=== PATIENT | male | born 1995 | race Caucasian/White ===

== ENCOUNTER 2021-12-21 10:28 | Emergency (ER) | payer OTHER ==
[~2021-12-21] VITALS: Ht 167.6 cm; Wt 90.7 kg
[2021-12-21] MEDS ORDERED: MIRTAZAPINE45 MG PO (11:28)
[2021-12-21] MEDS ORDERED: LAMOTRIGINE150 MG PO (11:28)
[2021-12-21] MEDS ORDERED: MELATONIN1 MG PO (11:29)
[2021-12-21] MEDS ORDERED: MINIPRESS2 MG PO (11:29)
[2021-12-21] MEDS ORDERED: THERA-GEL251 ML TOP (11:30)
[2021-12-21] MEDS ORDERED: LIDOCAINE HCL100 ML MT (11:31)
[2021-12-21] MEDS ORDERED: GENTLE LAXATIVE5 M1 PO (11:32)
[2021-12-21] MEDS ORDERED: SULFAMETHOXAZO1 EAC1 PO (11:33)
[2021-12-21] MEDS ORDERED: CIPRO500 MG PO (12:18)
== END 2021-12-21 12:36 | disposition home or self-care (01) ==
LOC: ED 10:28
DX: S61.451A Open bite of right hand, initial encounter (principal); W53.81XA Bitten by other rodent, initial encounter; Z88.0 Allergy status to penicillin; Z79.899 Other long term (current) drug therapy
CPT/HCPCS: 99283

== ENCOUNTER 2022-02-15 09:54 | Emergency (ER) | payer OTHER ==
[~2022-02-15] VITALS: Ht 167.6 cm; Wt 89.4 kg
[~2022-02-15 09:54] MED LIST: CIPRO500 MG PO; GENTLE LAXATIVE5 M1 PO; LAMOTRIGINE150 MG PO; LIDOCAINE HCL100 ML MT; MELATONIN1 MG PO; MINIPRESS2 MG PO; MIRTAZAPINE45 MG PO; SULFAMETHOXAZO1 EAC1 PO; THERA-GEL251 ML TOP
[2022-02-15] MEDS ORDERED: CLEOCIN HCL300 MG PO ×2 (10:14→14:24)
== END 2022-02-15 14:43 | disposition home or self-care (01) ==
LOC: ED 09:54
DX: L03.211 Cellulitis of face (principal); Z88.0 Allergy status to penicillin; Z79.899 Other long term (current) drug therapy
CPT/HCPCS: 10160; 36415; 70487; 80048; 85025; 99284-25; Q9967

== ENCOUNTER 2022-02-17 17:22 | Emergency (ER) | payer OTHER ==
[~2022-02-17] VITALS: Ht 167.6 cm; Wt 89.4 kg
[~2022-02-17 17:22] MED LIST changes: +CLEOCIN HCL300 MG PO
--- OUTSIDE RECORDS SUMMARY | 2022-02-17 17:30 | XMS ---
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 [place] - 2 Visits in 30 Days CARE PROVIDERS There are no care providers on record at this time. Yamileth has no Care Guidelines for this patient. [facility] (12 [address] [facility] NOTE: Visits indicate total known visits. 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
[2022-02-17] MEDS ORDERED: BACTRIM DS TAB1 EACH PO (20:33)
== END 2022-02-17 20:55 | disposition home or self-care (01) ==
LOC: ED 17:22
DX: L03.211 Cellulitis of face (principal); J32.9 Chronic sinusitis, unspecified; Z88.0 Allergy status to penicillin
CPT/HCPCS: 99283; A9270

== ENCOUNTER 2024-05-01 21:22 | Emergency (ER) | payer OTHER ==
[~2024-05-01] VITALS: Ht 167.6 cm; Wt 90.0 kg
[~2024-05-01 21:22] MED LIST changes: +BACTRIM DS TAB1 EACH PO
[2024-05-01 21:40] LABS: BASOPHILS 0.5 % (0-2); EOSINOPHILS 1.2 % (0-6); HEMATOCRIT 47.1 % (35.0-50.0); HEMOGLOBIN 16.3 g/dL (12.0-18.0); LYMPHOCYTES 26.2 % (24-44); MCH 30.1 (27-36); MCHC 34.7 g/dl (30-36); MCV 86.9 fl (81-99); MONOCYTES 7.2 % (0-12); NEUTROPHILS 64.9 % (39-80); PLATELET COUNT 291 K/uL (140-440); RBC 5.42 M/ul (4.3-5.7); RDW 12.5 (10.5-15.0)
[2024-05-01] MEDS ORDERED: LIDOCAINE 2% VISCOUS 6 ML SYR TOP ONE (21:45)
[2024-05-01] MEDS ORDERED: PAXIL30 MG PO (21:57)
[2024-05-01 21:58] LABS: ALBUMIN 4.5 g/dL (3.4-5.0); ALBUMIN/GLOBULIN RATIO 1.41 (1.1-2.4); ANION GAP 17.5 (7-21); BILIRUBIN, TOTAL 0.5 ng/dL (0.2-1.0); BUN/CREATININE RATIO 10.79 (6.0-28.6); CALCIUM 9.6 mg/dL (8.5-10.1); CREATININE, SERUM 1.39 mg/dL (0.70-1.30); POTASSIUM 4.5 mmol/L (3.5-5.1); PROTEIN, TOTAL 7.7 g/dL (6.4-8.2)
[2024-05-01] MEDS ORDERED: VISTARIL25 MG PO (22:03)
[2024-05-01 22:04] LABS: BILIRUBIN, URINE NEGATIVE (negative); BLOOD/HGB, URINE NEGATIVE (Negative); KETONE, URINE NEGATIVE (Negative); LEUK ESTERASE, URINE NEGATIVE (negative); NITRITE, URINE NEGATIVE (negative)
[2024-05-01] MEDS ORDERED: AMITRIPTYLINE150 MG PO (22:04)
[2024-05-01] MEDS ORDERED: LAMOTRIGINE200 MG PO (22:07)
[2024-05-01] MEDS ORDERED: CEFTRIAXONE/SODIUM CHLORIDE 2 GM/100 ML PIGGYBACK IV ONE ×2 (22:15→22:45)
[2024-05-01] MEDS ORDERED: LORazepam 2 MG/ML VIAL IV ONE (22:15)
[2024-05-01 22:19] LABS: AMPHETAMINES, URINE NEGATIVE (NEGATIVE); BARBITURATES, URINE NEGATIVE (NEGATIVE); BENZODIAZEPINE, URINE NEGATIVE (NEGATIVE); BUPRENORPHINE, URINE NEGATIVE (NEGATIVE); CANNABINOID, URINE NEGATIVE (NEGATIVE); COCAINE, URINE NEGATIVE (NEGATIVE); ECSTASY, URINE NEGATIVE (NEGATIVE); FENTANYL, URINE NEGATIVE (NEGATIVE); METHADONE, URINE NEGATIVE (NEGATIVE); OPIATES, URINE NEGATIVE (NEGATIVE); OXYCODONE, URINE NEGATIVE (NEGATIVE); PHENCYCLIDINE, URINE NEGATIVE (NEGATIVE)
[2024-05-01] MEDS ORDERED: DIPHTH,PERTUSS(ACELL),TET VAC 0.5 ML SYRINGE IM ONE (22:30)
[2024-05-01] MEDS ORDERED: LACTATED RINGER'S 1,000 ML IV PRN (22:45)
[2024-05-02] MEDS ORDERED: METAXALONE 800 MG TAB PO ONE (01:45)
[2024-05-02] MEDS ORDERED: ACETAMINOPHEN 500 MG TAB PO ONE (01:45)
[2024-05-02] MEDS ORDERED: diphenhydrAMINE HCL 50 MG/ML VIAL IV ONE (01:45)
[2024-05-02] MEDS ORDERED: LACTATED RINGER'S 1,000 ML IV ONE (01:45)
[2024-05-02] MEDS ORDERED: CYCLOBENZAPRINE HCL 10 MG TAB PO ONE (03:30)
[2024-05-02 03:52] LABS: LACTIC ACID, BLOOD 1.3 mmol/L (0.4-2.0)
[2024-05-02] MEDS ORDERED: KETOROLAC TROMETHAMINE 30 MG/ML VIAL IV ONE (04:15)
[2024-05-02 04:50] VITALS: BP 149/95
[2024-05-02] MEDS ORDERED: FLOMAX0.4 MG PO (18:03)
--- NOTE | 2024-05-03 20:49 | EKG ---
[facility] [address] [place], [place] [address] Signed Sinus tachycardia Otherwise normal ECG No previous ECGs available Confirmed by Merna Story MD ([id number]) on 05/03/2024 8:49:28 PM Electronically Signed By: MERNA STORY DO 05/03/242048 PATIENT NAME: JEVON GARLAND Electrocardiogram DATE OF : [birth year] PHYSICIAN: MERNA STORY DO REPORT #: [id number] REPORT IS CONFIDENTIAL AND NOT TO BE RELEASED WITHOUT AUTHORIZATION
== END 2024-05-02 04:50 | disposition home or self-care (01) ==
LOC: ED 21:22
PROVIDERS: Internal Medicine
DX: E86.0 Dehydration (principal); R65.10 Systemic inflammatory response syndrome (SIRS) of non-infectious origin without acute organ dysfunction; G25.2 Other specified forms of tremor; Z88.0 Allergy status to penicillin; Z79.899 Other long term (current) drug therapy
CPT/HCPCS: 36415; 51701; 70450; 71045; 80053; 80307; 81003; 82553; 83605; 83735; 85025; 87040; 93005; 93010; 99285-25; A9270; G0480; J0696; J1200; J1885; J2060; J7121

== ENCOUNTER 2024-05-02 12:22 | Emergency (ER) | payer OTHER ==
[~2024-05-02] VITALS: Ht 167.6 cm; Wt 95.3 kg
[~2024-05-02 12:22] MED LIST changes: +AMITRIPTYLINE150 MG PO; +LAMOTRIGINE200 MG PO; +PAXIL30 MG PO; +VISTARIL25 MG PO
[2024-05-02 13:16] LABS: BASOPHILS 0.5 % (0-2); EOSINOPHILS 2.4 % (0-6); HEMATOCRIT 41.4 % (35.0-50.0); HEMOGLOBIN 14.5 g/dL (12.0-18.0); LYMPHOCYTES 23.8 % (24-44); MCH 30.4 (27-36); MCHC 34.9 g/dl (30-36); MONOCYTES 7.4 % (0-12); NEUTROPHILS 65.9 % (39-80); PLATELET COUNT 220 K/uL (140-440); RBC 4.76 M/ul (4.3-5.7); RDW 12.6 (10.5-15.0)
[2024-05-02 13:29] LABS: ALBUMIN 3.9 g/dL (3.4-5.0); ALBUMIN/GLOBULIN RATIO 1.44 (1.1-2.4); ANION GAP 11.3 (7-21); BILIRUBIN, TOTAL 0.4 ng/dL (0.2-1.0); BUN/CREATININE RATIO 13.76 (6.0-28.6); CALCIUM 8.9 mg/dL (8.5-10.1); CREATININE, SERUM 1.09 mg/dL (0.70-1.30); POTASSIUM 4.3 mmol/L (3.5-5.1); PROTEIN, TOTAL 6.6 g/dL (6.4-8.2)
[2024-05-02 13:36] LABS: LACTIC ACID, BLOOD 1.5 mmol/L (0.4-2.0)
--- OUTSIDE RECORDS SUMMARY | 2024-05-02 16:39 | XMS ---
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 Yamileth has no Care Guidelines for this patient. [facility]12 MO.) [facility] NOTE: Visits indicate total known visits. [facility] [place] (12 MO.) [facility] COMPLAINT: - DIZZY/SLURRING SPEECH 05/01/2024 21:23 [facility] [place] TYPE: Emergency COMPLAINT: - VOMITING INPATIENT VISIT TRACKING (12 MO.) No inpatient visits to display in this time frame [email or web address]
[2024-05-02] MEDS ORDERED: LIDOCAINE 2% VISCOUS 6 ML SYR TOP ONE (18:00)
[2024-05-02] MEDS ORDERED: TAMSULOSIN HCL 0.4 MG CAP PO ONE (18:00)
[2024-05-02] MEDS ORDERED: FLOMAX0.4 MG PO (18:03)
[2024-05-02 18:28] VITALS: BP 149/97
== END 2024-05-02 18:28 | disposition home or self-care (01) ==
LOC: ED 12:22
PROVIDERS: Emergency Medicine
DX: R53.1 Weakness (principal); R33.9 Retention of urine, unspecified; R47.81 Slurred speech; M54.50 Low back pain, unspecified; Z88.0 Allergy status to penicillin; Z79.899 Other long term (current) drug therapy
CPT/HCPCS: 36415; 51702; 51798; 80053; 83605; 83735; 85025; 85651; 86140; 99284-25